=== PATIENT | female | born 1960 | race African-American/Black ===

== ENCOUNTER 2017-03-19 10:46 | Emergency (ER) | payer OTHER | END 2017-03-19 13:25 | disposition home or self-care (01) | LOC: ER1 10:46 | DX: S39.012A Strain of muscle, fascia and tendon of lower back, initial encounter (principal); S20.212A Contusion of left front wall of thorax, initial encounter; S20.211A Contusion of right front wall of thorax, initial encounter; I10 Essential (primary) hypertension; Z79.899 Other long term (current) drug therapy; V43.52XA Car driver injured in collision with other type car in traffic accident, initial encounter; Y93.89 Activity, other specified; Y92.410 Unspecified street and highway as the place of occurrence of the external cause | CPT/HCPCS: 71111; 72131; 99284 ==

== ENCOUNTER → 2017-04-13 | Outpatient (CLI) | payer OTHER | LOC: RAD 13:38 | DX: R07.81 Pleurodynia (principal); M54.6 Pain in thoracic spine | CPT/HCPCS: 71111; 72072 ==

== ENCOUNTER → 2021-04-21 | Outpatient (CLI) | payer MEDICARE ==
[~2021-04-21] MED LIST: IBU800 MG PO; MOBIC15 MG PO; NORCO 5-325 TA1 EACH PO; NORVASC10 MG PO; PRINIVIL20 MG PO; ROBAXIN-750750 MG PO
== END ==
LOC: EMI 04-14 13:00
DX: G44.039 Episodic paroxysmal hemicrania, not intractable (principal)
CPT/HCPCS: 70551